=== PATIENT | male | born 1965 | race Caucasian/White ===

== ENCOUNTER 2018-05-09 07:57 | Emergency (ER) | payer MEDICAID ==
[~2018-05-09] VITALS: Ht 172.7 cm; Wt 75.0 kg
[~2018-05-09 07:57] MED LIST: ALPR-155 PO; DIAZ5TAB PO; ENOX100S5 SQ; ENOX80SY5 SQ; HYDR-3237 PO; HYDR-3307 PO; RIVA10TA PO; WARF-36 PO-COUM; WARF5TAB PO
[2018-05-09 15:58] VITALS: BP 135/89
== END 2018-05-09 16:01 | disposition home or self-care (01) ==
LOC: MERGE 07:57 → ED 13:10
DX: G92 Toxic encephalopathy (principal); F10.10 Alcohol abuse, uncomplicated; M79.601 Pain in right arm; I10 Essential (primary) hypertension; E11.9 Type 2 diabetes mellitus without complications; F43.10 Post-traumatic stress disorder, unspecified; R26.2 Difficulty in walking, not elsewhere classified; R45.1 Restlessness and agitation; Z86.718 Personal history of other venous thrombosis and embolism
CPT/HCPCS: 36415; 80307; 99283

== ENCOUNTER 2018-05-11 06:12 | Emergency (ER) | payer MEDICAID ==
[~2018-05-11] VITALS: Ht 180.3 cm; Wt 81.8 kg
[2018-05-11] MEDS ORDERED: SODIUM CHLORIDE 0.9% 1,000ML IVBOLUS ONE (07:00)
[2018-05-11] MEDS ORDERED: PROCHLORPERAZINE 5 MG/ML, 2ML IVPush ONE (07:00)
[2018-05-11] MEDS ORDERED: SODIUM CHLORIDE FLUSH 10ML SYR IVF ONE (07:00)
[2018-05-11] MEDS ORDERED: DIPHENHYDRAMINE 50 MG/ML, 1ML IVPush ONE (07:00)
[2018-05-11] MEDS ORDERED: LORazepam 2 MG/ML, 1ML IVPush ONE (07:00)
[2018-05-11] MEDS ORDERED: PROCHLORPERAZINE 5 MG/ML, 2ML ONE (07:26)
[2018-05-11] MEDS ORDERED: DIPHENHYDRAMINE 50 MG/ML, 1ML ONE (07:26)
[2018-05-11] MEDS ORDERED: LORazepam 2 MG/ML, 1ML ONE (07:26)
[2018-05-11 10:15] VITALS: BP 136/88
== END 2018-05-11 11:52 | disposition home or self-care (01) ==
LOC: ED 08:34 → EDIP 08:35 → UNDOADMIN 08:35 → ED 10:38
DX: G43.909 Migraine, unspecified, not intractable, without status migrainosus (principal); I10 Essential (primary) hypertension; E11.9 Type 2 diabetes mellitus without complications
CPT/HCPCS: 96361; 96374; 96375; 99284; J0780; J1200; J2060; J7030

== ENCOUNTER 2018-07-06 12:23 | Emergency (ER) | payer MEDICAID ==
[~2018-07-06] VITALS: Ht 182.9 cm; Wt 77.0 kg
[2018-07-06] MEDS ORDERED: ONDANSETRON 2MG/ML, 2ML ONE (12:43)
[2018-07-06] MEDS ORDERED: SODIUM CHLORIDE 0.9% 1,000ML IVBOLUS ONE (14:30)
[2018-07-06] MEDS ORDERED: SODIUM CHLORIDE FLUSH 10ML SYR IVF ONE (14:30)
[2018-07-06] MEDS ORDERED: ONDANSETRON 2MG/ML, 2ML IVPush ONE (14:30)
[2018-07-07 01:57] VITALS: BP 154/93
[2018-07-07] MEDS ORDERED: LORazepam 1MG TABLET ONE (02:18)
[2018-07-07] MEDS ORDERED: LORazepam 1MG TABLET PO ONE (02:30)
== END 2018-07-07 02:32 | disposition home or self-care (01) ==
LOC: EDBD 12:23 → MERGE 22:00 → ED 22:00
DX: F10.220 Alcohol dependence with intoxication, uncomplicated (principal); Z79.899 Other long term (current) drug therapy
CPT/HCPCS: 36415; 80307; 96361; 96374; 99285; J2405; J7030; 96375

== ENCOUNTER 2018-09-03 10:18 | Emergency (ER) | payer MEDICAID ==
[~2018-09-03] VITALS: Ht 180.3 cm; Wt 74.2 kg
[2018-09-03 10:27] VITALS: BP 145/95
[2018-09-03] MEDS ORDERED: CEFAZOLIN 1,000 MG ONE (10:57)
[2018-09-03] MEDS ORDERED: KETOROLAC 30 MG/1 ML ONE (10:57)
[2018-09-03] MEDS ORDERED: HYDROcodone/APAP 5/325 TABLET ONE (10:58)
[2018-09-03] MEDS ORDERED: HYDROcodone/APAP 5/325 TABLET PO ONE (11:00)
[2018-09-03] MEDS ORDERED: KETOROLAC 60 MG/2 ML IM ONE (12:00)
[2018-09-03] MEDS ORDERED: CEFAZOLIN 1,000 MG IM ONE (12:00)
== END 2018-09-03 11:36 | disposition home or self-care (01) ==
LOC: ED 10:50
DX: L03.011 Cellulitis of right finger (principal); M25.551 Pain in right hip; X58.XXXA Exposure to other specified factors, initial encounter; Y93.89 Activity, other specified; Y99.8 Other external cause status; Y92.009 Unspecified place in unspecified non-institutional (private) residence as the place of occurrence of the external cause
CPT/HCPCS: 96372; 99284; J0690; J1885

== ENCOUNTER 2018-09-25 18:38 | Emergency (ER) | payer MEDICAID ==
[~2018-09-25] VITALS: Ht 180.3 cm; Wt 74.0 kg
[2018-09-26 02:46] VITALS: BP 109/62
== END 2018-09-26 06:40 | disposition home or self-care (01) ==
LOC: ED 23:54
DX: F10.120 Alcohol abuse with intoxication, uncomplicated (principal); I10 Essential (primary) hypertension; E11.9 Type 2 diabetes mellitus without complications; G43.909 Migraine, unspecified, not intractable, without status migrainosus
CPT/HCPCS: 99283